=== PATIENT | male | born 1995 | race Caucasian/White ===

== ENCOUNTER 2020-01-23 06:32 | Emergency (ER) | payer MEDICAID, SELFPAY ==
[2020-01-23 06:32] VITALS: BP 157/74; PULSE 94; RESP 16; TEMP 36.4; O2SAT 97; BMI 24.0
--- NOTE | 2020-01-23 06:54 | ED.DCSUM_ITS ---
History of Present Illness Chief Complaint: Laceration Narrative: This patient is a 24-year-old male who presents with a head injury. He had fallen asleep in a chair. He states he had recently rearranged his room. He had forgotten that there was a light fixture above his chair and when he stood up quickly he hit his head on it and sustained a laceration. No loss of consciousness. No headache. No vomiting. He is not anticoagulated. No other injuries. Past Medical History - Allergies and Home Meds Allergies/Adverse Reactions: Allergies No Known Allergies Allergy (Verified 01/23/20 06:39) Primary Care Physician: Care Physician,No Primary [Primary Care Provider] - Past Medical History: None Smoking Status: Current every day smoker Review of Systems All systems negative except as indicated General: Denies: Fever Cardiovascular: Denies: Chest pain Respiratory: Denies: Dyspnea Gastrointestinal: Denies: Nausea, Vomiting Skin: Denies: Rash Neurological: Denies: Headache Hematologic: Denies: Easy bruising, Easy bleeding Physical Exam Vital Signs/Narrative: Vital Signs Temp Pulse Resp BP Pulse Ox 01/23/20 06:32 97.6 F L 94 16 157/74 H 97 Inital Vital Signs reviewed: Yes General: Well nourished Head: Normocephalic, - - There is a 3 cm x 2 cm V-shaped laceration at the apical scalp no active bleeding no foreign body visualized Eyes: EOMI ENT: Moist mucous membranes Neck: Supple Cardiovascular: Regular rate, Regular rhythm Respiratory: No distress Skin: Normal color Neurological: Alert, Oriented x3, - - GCS of 15 with no focal or lateralizing neurological deficit Diagnostic/Tx/Re-eval - Medical Decision Making The patient's wound was well visualized. No foreign body was visualized. Additionally I did perform soft tissue ultrasound which did not show any obvious foreign body/glass. Laceration was anesthetized with a total of 4 cc of 1% lidocaine with epinephrine. Good anesthesia was achieved. Wound was cleansed with sterile saline. A total of 5 simple interrupted 4?0 nonabsorbable sutures were placed. Patient was instructed on local wound care. All questions answered bedside. Patient was advised on signs and symptoms to monitor for and symptoms which should prompt immediate return to the emergency department for reevaluation. He is up-to-date on his tetanus immunization. Patient was discharged. ED Disposition - Plan for ED Patient: Disposition: Home or Assisted Living Diagnosis: Scalp laceration Instructions: ED Head Injury Adult, ED Laceration Scalp Sutures or [place] Referrals: Care Physician,No Primary [Primary Care Provider] -
== END 2020-01-23 07:08 | disposition home or self-care (01) ==
PROVIDERS: Emergency Provider Emergency Medicine
DX: S01.01XA Laceration without foreign body of scalp, initial encounter (principal); W22.03XA Walked into furniture, initial encounter; Y92.009 Unspecified place in unspecified non-institutional (private) residence as the place of occurrence of the external cause; Y99.9 Unspecified external cause status; F17.200 Nicotine dependence, unspecified, uncomplicated
CPT/HCPCS: 12001; 99283